=== PATIENT | female | born 1990 | race Caucasian/White ===

== ENCOUNTER 2020-03-14 04:39 | Inpatient (IN) | payer BC ==
[2020-03-14] MEDS ORDERED: Sodium Chloride 0.9% 10 ML SDV IV PRN (05:28)
[2020-03-14] MEDS ORDERED: Sodium Chloride 0.9% 10 ML Syringe FLUSH PRN (05:28)
[2020-03-14] MEDS ORDERED: Sodium Chloride 0.9% 2.5 ML Syringe FLUSH PRN (05:28)
[2020-03-14] MEDS ORDERED: Lactated Ringers 1,000 ML IV SCH ×2 (05:30→09:45)
[2020-03-14] MEDS ORDERED: Oxytocin/0.9 % Sodium Chloride 30 UNIT/500 ML BAG IV SCH (05:30)
[2020-03-14] MEDS ORDERED: Morphine PF 10 MG/10 ML SDV ONE (06:58)
[2020-03-14] MEDS ORDERED: Oxytocin 10 Units/1 ML SDV ONE (07:02)
[2020-03-14] MEDS ORDERED: Sodium Chloride 0.9% 20 ML ONE (07:02)
[2020-03-14] MEDS ORDERED: Ondansetron 4 MG/2 ML SDV ONE (07:02)
[2020-03-14] MEDS ORDERED: Phenylephrine 1% 10 MG/ML SDV ONE (07:02)
[2020-03-14] MEDS ORDERED: ceFAZolin 1 GM Vial ONE (07:02)
[2020-03-14] MEDS ORDERED: Ketorolac 30 MG/ML SDV ONE (07:02)
[2020-03-14] MEDS ORDERED: Octyl 2-Cyanoacrylate 1 Tube ONE (07:28)
--- NOTE | 2020-03-14 07:37 | PCM.PREANE ---
Preanesthetic Assessment - Anesthesia/Transfusion/Family Hx Anesthesia History: Prior Anesthesia Without Reaction Family History of Anesthesia Reaction: No Transfusion History: No Prior Transfusion(s) - Review of Systems General: No Symptoms Pulmonary: No Symptoms Cardiovascular: No Symptoms Gastrointestinal: No Symptoms Neurological: No Symptoms Other: Reports: None - Physical Assessment NPO Status Date: 03/13/20 Height: 5 ft 7 in Weight: 68.946 kg ASA Class: 2 Mental Status: Alert & Oriented x3 Airway Class: Mallampati = 2 Dentition: Reports: Normal Dentition ROM/Head Extension: Full Lungs: Clear to Auscultation, Normal Respiratory Effort Cardiovascular: Regular Rate, Regular Rhythm - Lab Values: Laboratory Last Values WBC 7.94 K/uL (4.0-11.0) 03/14/20 05:36 RBC 4.56 M/uL (4.30-5.90) 03/14/20 05:36 Hgb 13.6 g/dL (12.0-16.0) 03/14/20 05:36 Hct 40.0 % (36.0-46.0) 03/14/20 05:36 MCV 87.7 fL (80.0-98.0) 03/14/20 05:36 MCH 29.8 pg (27.0-32.0) 03/14/20 05:36 MCHC 34.0 g/dL (31.0-37.0) 03/14/20 05:36 RDW Std Deviation 43.7 fl (28.0-62.0) 03/14/20 05:36 RDW Coeff of Jimy 14 % (11.0-15.0) 03/14/20 05:36 Plt Count 168 K/uL (150-400) 03/14/20 05:36 MPV 11.40 fL (7.40-12.00) 03/14/20 05:36 Nucleated RBC % 0.0 /100WBC 03/14/20 05:36 Nucleated RBCs # 0 K/uL 03/14/20 05:36 Blood Type O POSITIVE 03/14/20 05:36 Antibody Screen NEGATIVE 03/14/20 05:36 - Allergies Allergies/Adverse Reactions: Allergies Allergy/AdvReac Type Severity Reaction Status Date / Time amoxicillin Allergy Rash Verified 03/14/20 05:28 - Blood Blood Available: Yes - Anesthesia Plan Pre-Op Medication Ordered: Antacids - Acknowledgements Anesthesia Type Planned: Spinal Pt an Appropriate Candidate for the Planned Anesthesia: Yes Alternatives and Risks of Anesthesia Discussed w Pt/Guardian: Yes Pt/Guardian Understands and Agrees with Anesthesia Plan: Yes Additional Comments: PMH: elective c section for LGA and hx of 3rd degree tear during of first child, Gest DM diet controlled PLAN: spinal; with duramorpg PreAnesthesia Questionnaire HEENT History: Reports: Impaired Vision Other HEENT History: wears contact lens\glasses Cardiovascular History: Reports: None Respiratory History: Reports: None Gastrointestinal History: Reports: Other (See Below) Other Gastrointestinal History: occasional heartburn with Genitourinary History: Reports: None 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: Musculoskeletal History: Reports: Fracture Other Musculoskeletal History: states fractured tailbone when in highschool Neurological History: Reports: None Psychiatric History: Reports: Anxiety Endocrine/Metabolic History: Reports: Diabetes, Gestational Other Endocrine/Metabolic History: states controlled by exercise and diet Hematologic History: Reports: None Immunologic History: Reports: None Oncologic (Cancer) History: Reports: None Dermatologic History: Reports: None - Infectious Disease History Infectious Disease History: Reports: Chicken Pox Other Infectious Disease History: when a child - Past Surgical History Head Surgeries/Procedures: Reports: None HEENT Surgical History: Reports: Oral Surgery Other HEENT Surgeries/Procedures: states had wisdom teeth extracted 2009 Cardiovascular Surgical History: Reports: None Respiratory Surgical History: Reports: None GI Surgical History: Reports: None Female Surgical History: Reports: None Endocrine Surgical History: Reports: None Neurological Surgical History: Reports: None Musculoskeletal Surgical History: Reports: None Oncologic Surgical History: Reports: None - SUBSTANCE USE Tobacco Use Status *Q: Never Tobacco User Second Hand Smoke Exposure: No - HOME MEDS Home Medications: Home Meds Fish Oil/Bartelso-3 Fatty Acids [Fish Oil 1,000 MG] 1 tab PO DAILY 03/08/20 [History] Magnesium 1 tab PO DAILY 03/08/20 [History] Vit No.129/Iron/FA [ One Daily Tablet] 1 tab PO DAILY 03/08/20 [History] - CURRENT (IN HOUSE) MEDS Current Meds: Current Medications Citric Acid/Sodium Citrate (Bicitra Solution) 30 ml PO ONETIME ONE Stop: 03/14/20 08:01 Oxytocin/Sodium Chloride (Oxytocin 30 Unit/500 Ml-Ns) 30 unit in 500 mls @ 250 mls/hr IV TITRATE [facility] Lactated Ringer's (Ringers, Lactated) 1,000 mls @ 500 mls/hr IV BOLUS [facility] Last Admin: 03/14/20 05:40 Dose: 500 mls/hr Documented by: Sodium Chloride (Saline Flush) 10 ml FLUSH ASDIRECTED PRN PRN Reason: Keep Vein Open Sodium Chloride (Saline Flush) 2.5 ml FLUSH ASDIRECTED PRN PRN Reason: Keep Vein Open Sodium Chloride (Normal Saline) 10 ml IV ASDIRECTED PRN PRN Reason: IV Use Discontinued Medications Cefazolin Sodium (Ancef) Confirm Administered Dose 2 gm .ROUTE .STK-MED ONE Stop: 03/14/20 07:03 Sodium Chloride (Normal Saline) Confirm Administered Dose 20 mls @ as directed .ROUTE .STK-MED ONE Stop: 03/14/20 07:03 Ketorolac Tromethamine (Toradol) Confirm Administered Dose 30 mg .ROUTE .STK-MED ONE Stop: 03/14/20 07:03 Morphine Sulfate (Duramorph Pf) Confirm Administered Dose 10 mg .ROUTE .STK-MED ONE Stop: 03/14/20 06:59 Octyl Cyanoacrylate (Dermabond Advance) Confirm Administered Dose 1 applic .ROUTE .STK-MED ONE Stop: 03/14/20 07:29 Ondansetron HCl (Zofran) Confirm Administered Dose 4 mg .ROUTE .STK-MED ONE Stop: 03/14/20 07:03 Oxytocin (Pitocin) Confirm Administered Dose 20 unit .ROUTE .STK-MED ONE Stop: 03/14/20 07:03 Phenylephrine HCl (Lex-Synephrine) Confirm Administered Dose 10 mg .ROUTE .STK- MED ONE Stop: 03/14/20 07:03
[2020-03-14] MEDS ORDERED: Acetaminophen/oxyCODONE 325-5 MG Tab PO PRN (07:38)
[2020-03-14] MEDS ORDERED: fentaNYL 100 MCG/2 ML SDV IVPUSH PRN (07:38)
[2020-03-14] MEDS ORDERED: Citric Acid/Sodium Citrate Solution 30 ML Cup PO ONE (08:00)
[2020-03-14] MEDS ORDERED: Tranexamic Acid 1,000 MG in Sodium Chloride 0.9% 100 ML IV PRN (09:34)
[2020-03-14] MEDS ORDERED: Methylergonovine 0.2 MG/1 ML Amp IM PRN (09:34)
[2020-03-14] MEDS ORDERED: Bisacodyl 10 MG Supp RECTAL PRN (09:34)
[2020-03-14] MEDS ORDERED: Ondansetron 4 MG/2 ML SDV IVPUSH PRN (09:34)
[2020-03-14] MEDS ORDERED: Lanolin 100% Cream 7 GM Tube TOP PRN (09:34)
[2020-03-14] MEDS ORDERED: Oxytocin 10 Units/1 ML SDV IM PRN (09:34)
[2020-03-14] MEDS ORDERED: Misoprostol 200 MCG Tab RECTAL PRN (09:34)
[2020-03-14] MEDS ORDERED: Oxytocin/Lactated Ringers 30 UNIT/500 ML BAG IV SCH (09:45)
--- NOTE | 2020-03-14 09:48 | PCM.OPNOTE ---
- General Post-Op/Procedure Note Date of Surgery/Procedure: 03/14/20 Operative Procedure(s): Primary lower segment cesearean section Findings: Live male delivered at 829am , 8/9 weight 4010g , Normal tubes and ovaries, Uterus with small subserosal fibroid Pre Op Diagnosis: 30yo @ 39w0d. GDMA1, Suspected Macrosomia. Hx of 4th degree laceration , Hx of VAVD Post-Op Diagnosis: same Anesthesia Technique: Spinal Primary Surgeon: Davon Winn Anesthesia Provider: [place] Pathology: Placenta Fluid Replacement, Intraop: 900 Output, Urine Amount: 50 EBL in mLs: 800 Complications: None Condition: Good Free Text/Narrative:: Intake & Output 03/13/20 03/14/20 03/14/20 22:59 06:59 14:59 Output Total 50 Balance -50
--- NOTE | 2020-03-14 09:49 | PCM.POSTAN ---
POST ANESTHESIA ASSESSMENT - MENTAL STATUS Mental Status: Alert, Oriented - VITAL SIGNS Vital Signs: Last Vital Signs Temp 97.2 F 03/14/20 09:15 Pulse 66 03/14/20 09:45 Resp 13 03/14/20 09:45 BP 93/54 L 03/14/20 09:45 Pulse Ox 98 03/14/20 09:45 - RESPIRATORY Respiratory Status: Respiratory Rate WNL, Airway Patent, O2 Saturation Stable - CARDIOVASCULAR CV Status: Pulse Rate WNL, Blood Pressure Stable - GASTROINTESTINAL GI Status: No Symptoms - POST OP HYDRATION Hydration Status: Adequate & Stable
[2020-03-14] MEDS: Nalbuphine 10 MG/1 ML Vial IVPUSH PRN ×2 (10:52→15:08)
[2020-03-14] MEDS: Ketorolac 30 MG/ML SDV IVPUSH SCH ×3 (10:52→21:10)
--- NOTE | 2020-03-14 14:58 | OR ---
SURGEON: VINH ROSE DATE OF PROCEDURE: 03/14/2020 PREOPERATIVE DIAGNOSES: 1. A 30-year-old G2, P1-0-0-1 at 39 weeks 0 days for primary section. 2. Gestational diabetes mellitus A1. 3. Suspected macrosomia. 4. History of fourth-degree laceration. 5. History of vacuum-assisted vaginal delivery. POSTOPERATIVE DIAGNOSES: 1. A 30-year-old G2, P1-0-0-1 at 39 weeks 0 days for primary section. 2. Gestational diabetes mellitus A1. 3. Suspected macrosomia. 4. History of fourth-degree laceration. 5. History of vacuum-assisted vaginal delivery. PROCEDURE: Primary lower segment section. ESTIMATED BLOOD LOSS: 800. INTRAVENOUS FLUID: 900. URINE OUTPUT: 50. ANESTHESIA: Spinal. COMPLICATIONS: None. NOTES AND FINDINGS: Live male delivered at 8:29am scores of 8 and 9. Weight is 4010 g. Normal tubes and ovaries. Small subserosal fibroid noted in uterus. BRIEF HISTORY ABOUT THE PATIENT: She is 30-year-old G2, P1-0-0-1 who had care complicated with a GDMA1 . She also had polyhydramnios, last XOCHILT reduced at 24. She had also suspected macrosomia with Predicted EFW to be greater than 4500. As a result, she was counseled for a primary section for suspected macrosomia versus induction of labor. The patient was explained the risks, benefits, and alternatives, and she decided to proceed with . DESCRIPTION OF PROCEDURE: The patient was taken to the operating room where spinal anesthesia was performed without difficulty. She was prepared and draped in the dorsal supine position with a leftward tilt. A Pfannenstiel skin incision was made with a scalpel and carried down to the fascia with a Bovie. The fascia was incised and extended upwards and laterally. The fascia was seperated from the rectus muscle n the midline down to the level of the pubic symphysis. Then, the peritoneum was then opened up bluntly, and Juan Alberto retractor was placed. A bladder flap was created. A lower uterine incision was made. The fetus was in cephalic position, was brought to the level of the incision. Then, the was delivered without difficulty. Delayed cord clamping was observed. The cord was clamped and cut. The was handed over to the awaiting nursery nurse. The placenta was delivered by manual massage of the uterine fundus. The inside of uterus was cleaned with laparotomy sponges. The uterus was closed in 2 layers, first layer with 0 Vicryl, second layer with 0 Monocryl. The gutters were cleaned with moist laparotomy sponges. Incision was inspected, noted to be hemostatic. The Juan Alberto retractor was removed. Then, the bladder blade was placed. Incision was inspected and noted to be hemostatic. Then, peritoneum was closed with 3-0 Vicryl. The raphe of the rectus muscle in the midline was also approximated. The fascia was closed with 0 Vicryl. The skin was closed with 3-0 Monocryl on a Sharad needle. All instrument and pad counts were correct x2. ENRIQUE / MARTINEZ /[id number] MTDD
[2020-03-14] MEDS: Docusate Sodium 100 MG Cap PO SCH (21:11)
[2020-03-14] MEDS: diphenhydrAMINE 50 MG/ML SDV IVPUSH PRN (21:17)
[2020-03-15] MEDS: diphenhydrAMINE 50 MG/ML SDV IVPUSH PRN (03:30)
[2020-03-15] MEDS: Ketorolac 30 MG/ML SDV IVPUSH SCH ×2 (03:30→09:25)
[2020-03-15] MEDS: Acetaminophen/oxyCODONE 325-5 MG Tab PO PRN ×2 (09:31→18:03)
[2020-03-15] MEDS: Docusate Sodium 100 MG Cap PO SCH ×2 (09:32→20:43)
--- NOTE | 2020-03-15 10:17 | PCM.PNPP ---
- General Info Date of Service: 03/15/20 Subjective Update: 30yo P2 s/p for suspected macrosomia , GDMA 1 well controlled . Pumping and bottle feeding Normal lochia , H/H stable this am, Ambulating , regular diet , Good mood , voiding Functional Status: Reports: Pain Controlled, Tolerating Diet, Ambulating, Urinating - Review of Systems General: Reports: No Symptoms HEENT: Reports: No Symptoms Pulmonary: Reports: No Symptoms Cardiovascular: Reports: No Symptoms Gastrointestinal: Reports: No Symptoms Genitourinary: Reports: No Symptoms Musculoskeletal: Reports: No Symptoms Skin: Reports: No Symptoms Neurological: Reports: No Symptoms Psychiatric: Reports: No Symptoms - General Info Date of Service: 03/15/20 - Patient Data Vital Signs - Most Recent: Last Vital Signs Temp 36.8 C 03/15/20 08:12 Pulse 83 03/15/20 08:12 Resp 16 03/15/20 08:12 BP 106/64 03/15/20 08:12 Pulse Ox 100 03/15/20 08:12 Weight - Most Recent: 68.946 kg I&O - Last 24 Hours: Intake & Output 03/14/20 03/15/20 03/15/20 22:59 06:59 14:59 Intake Total 699 Output Total 800 5700 Balance -101 -5700 Lab Results - Last 24 Hours: Laboratory Results - last 24 hr 03/15/20 Range/Units 06:23 Hgb 11.8 L (12.0-16.0) g/dL Hct 34.9 L (36.0-46.0) % Med Orders - Current: Current Medications Bisacodyl (Dulcolax) 10 mg RECTAL ONETIME PRN PRN Reason: Constipation Diphenhydramine HCl (Benadryl) 25 mg IVPUSH Q6H PRN PRN Reason: Itching or Nausea Last Admin: 03/15/20 03:30 Dose: 25 mg Documented by: Docusate Sodium (Colace) 100 mg PO BID [facility] Last Admin: 03/15/20 09:32 Dose: 100 mg Documented by: Emollient Ointment (Lansinoh Hpa) 0 gm TOP ASDIRECTED PRN PRN Reason: Sore Nipples Oxytocin/Sodium Chloride (Oxytocin 30 Unit/500 Ml-Ns) 30 unit in 500 mls @ 250 mls/hr IV TITRATE [facility] Lactated Ringer's (Ringers, Lactated) 1,000 mls @ 125 mls/hr IV ASDIRECTED [facility] Last Admin: 03/14/20 10:29 Dose: 125 mls/hr Documented by: Oxytocin/Lactated Ringer's (Pitocin In Lr 30 Units/500 Ml) 30 unit in 500 mls @ 2 mls/hr IV TITRATE [facility]; Protocol Tranexamic Acid 1,000 mg/ (Sodium Chloride) 110 mls @ 660 mls/hr IV ONETIME PRN PRN Reason: Bleeding Ibuprofen (Motrin) 800 mg PO Q8H PRN PRN Reason: mild pain or fever Methylergonovine Maleate (Methergine) 0.2 mg IM ONETIME PRN PRN Reason: Excessive Vaginal Bleeding Misoprostol (Cytotec) 1,000 mcg RECTAL ONETIME PRN PRN Reason: excessive bleeding Ondansetron HCl (Zofran) 4 mg IVPUSH Q4H PRN PRN Reason: Nausea/Vomiting Oxycodone/Acetaminophen (Percocet 325-5 Mg) 1 tab PO Q4H PRN PRN Reason: Pain (moderate 4-6) Last Admin: 03/15/20 09:31 Dose: 1 tab Documented by: Oxycodone/Acetaminophen (Percocet 325-5 Mg) 2 tab PO Q4H PRN PRN Reason: Pain (moderate 4-6) Oxytocin (Pitocin) 10 unit IM ASDIRECTED PRN PRN Reason: Excessive Vaginal Bleeding Sodium Chloride (Saline Flush) 10 ml FLUSH ASDIRECTED PRN PRN Reason: Keep Vein Open Sodium Chloride (Saline Flush) 2.5 ml FLUSH ASDIRECTED PRN PRN Reason: Keep Vein Open Sodium Chloride (Normal Saline) 10 ml IV ASDIRECTED PRN PRN Reason: IV Use Discontinued Medications Cefazolin Sodium (Ancef) Confirm Administered Dose 2 gm .ROUTE .STK-MED ONE Stop: 03/14/20 07:03 Citric Acid/Sodium Citrate (Bicitra Solution) 30 ml PO ONETIME ONE Stop: 03/14/20 08:01 Fentanyl (Sublimaze) 50 mcg IVPUSH Q5M PRN PRN Reason: Pain (severe 7-10) Stop: 03/15/20 07:38 Lactated Ringer's (Ringers, Lactated) 1,000 mls @ 500 mls/hr IV BOLUS [facility] Last Admin: 03/14/20 05:40 Dose: 500 mls/hr Documented by: Sodium Chloride (Normal Saline) Confirm Administered Dose 20 mls @ as directed .ROUTE .STK-MED ONE Stop: 03/14/20 07:03 Ketorolac Tromethamine (Toradol) Confirm Administered Dose 30 mg .ROUTE .STK-MED ONE Stop: 03/14/20 07:03 Ketorolac Tromethamine (Toradol) 30 mg IVPUSH Q6H [facility] Stop: 03/15/20 09:46 Last Admin: 03/15/20 09:25 Dose: 30 mg Documented by: Morphine Sulfate (Duramorph Pf) Confirm Administered Dose 10 mg .ROUTE .STK-MED ONE Stop: 03/14/20 06:59 Nalbuphine HCl (Nubain) 2.5 mg IVPUSH Q3H PRN PRN Reason: Pruritis Stop: 03/15/20 07:38 Last Admin: 03/14/20 15:08 Dose: 2.5 mg Documented by: Octyl Cyanoacrylate (Dermabond Advance) Confirm Administered Dose 1 applic .ROUTE .STK-MED ONE Stop: 03/14/20 07:29 Last Admin: 03/14/20 10:52 Dose: Not Given Documented by: Ondansetron HCl (Zofran) Confirm Administered Dose 4 mg .ROUTE .STK-MED ONE Stop: 03/14/20 07:03 Oxycodone/Acetaminophen (Percocet 325-5 Mg) 1 tab PO ONETIME PRN PRN Reason: Pain (moderate 4-6) Oxytocin (Pitocin) Confirm Administered Dose 20 unit .ROUTE .STK-MED ONE Stop: 03/14/20 07:03 Phenylephrine HCl (Lex-Synephrine) Confirm Administered Dose 10 mg .ROUTE .STK- MED ONE Stop: 03/14/20 07:03 - Interaction Support Person: - Recovery Exam Fundal Tone: Firm Fundal Level: 1 Fingerbreadths Below Umbilicus Fundal Placement: Midline Lochia Amount: Scant Lochia Color: Rubra/Red Perineum Description: Intact, Minimal Bruising/Swelling Episiotomy/Laceration: None Bladder Status: Indwelling Catheter in Place Urinary Elimination: Indwelling Catheter - Exam General: Alert HEENT: Pupils Equal Neck: Supple Lungs: Clear to Auscultation Cardiovascular: Regular Rate, Regular Rhythm GI/Abdominal Exam: Normal Bowel Sounds Extremities: Normal Inspection Wound/Incisions: Dressing Dry and Intact Neurological: No New Focal Deficit Psy/Mental Status: Alert, Normal Affect, Normal Mood - Problem List & Annotations (1) delivery delivered SNOMED Code(s): 078483253 Code(s): O82 - ENCOUNTER FOR DELIVERY WITHOUT INDICATION Status: Acute Current Visit: Yes (2) Gestational diabetes mellitus (GDM) SNOMED Code(s): 59485905 Code(s): O24.419 - GESTATIONAL DIABETES MELLITUS IN , UNSP CONTROL Status: Acute Current Visit: Yes Qualifiers: Gestational diabetes mellitus control: diet-controlled - Problem List Review Problem List Initiated/Reviewed/Updated: Yes - My Orders Last 24 Hours: My Active Orders 03/14/20 09:34 Patient Status [ADT] Routine Ambulate [RC] PER UNIT ROUTINE Communication Order [RC] PER UNIT ROUTINE Communication Order [RC] PER UNIT ROUTINE Communication Order [RC] Per Unit Routine May Shower [RC] ASDIRECTED Notify Provider Intake and Out [RC] ASDIRECTED Notify Provider Vital Signs [RC] ASDIRECTED RT Incentive Spirometry [RC] Q2HWA Acetaminophen/oxyCODONE [Percocet 325-5 MG] 1 tab PO Q4H PRN Acetaminophen/oxyCODONE [Percocet 325-5 MG] 2 tab PO Q4H PRN Ibuprofen [Motrin] 800 mg PO Q8H PRN Lanolin [Lansinoh HPA] See Dose Instructions TOP ASDIRECTED PRN Methylergonovine [Methergine] 0.2 mg IM ONETIME PRN Ondansetron [Zofran] 4 mg IVPUSH Q4H PRN Oxytocin [Pitocin] 10 unit IM ASDIRECTED PRN Tranexamic Acid [Cyklokapron] 1,000 mg Sodium Chloride 0.9% [Normal Saline] 100 ml IV ONETIME bisacodyL [Dulcolax] 10 mg RECTAL ONETIME PRN diphenhydrAMINE [Benadryl] 25 mg IVPUSH Q6H PRN miSOPROStoL [Cytotec] 1,000 mcg RECTAL ONETIME PRN Assess Lochia [WOMSER] Per Unit Routine Assess Uterine Involution [WOMSER] Per Unit Routine Breast Pump [WOMSER] Per Unit Routine Peripheral IV Discontinue [OM.PC] Routine Sequential Compression Device [OM.PC] Per Unit Routine Resuscitation Status Routine 03/14/20 09:35 Antiembolic Devices [RC] PER UNIT ROUTINE 03/14/20 09:45 Lactated Ringers [Ringers, Lactated] 1,000 ml IV ASDIRECTED Oxytocin/Lactated Ringers [Pitocin in LR 30 Units/500 ML] 30 unit in 500 ml IV TITRATE 03/14/20 Dinner Regular Diet [DIET] 03/14/20 21:00 Docusate Sodium [Colace] 100 mg PO BID - Assessment Assessment:: 30yo P2 s/p for suspected macrosomia POD 1 , met all post op goals ambulating , voiding and tolerating regular diet Normal lochia - Plan Plan:: Regular diet Pain control as needed Venodynes Incentive spirometry VSS per protocol Possible discharge tomorrow
--- NOTE | 2020-03-15 11:54 | PCM48HPAN ---
Post Anesthesia Note - EVALUATION WITHIN 48HRS OF ANESTHETIC Vital Signs in Normal Range: Yes Patient Participated in Evaluation: Yes Respiratory Function Stable: Yes Airway Patent: Yes Cardiovascular Function Stable: Yes Hydration Status Stable: Yes Pain Control Satisfactory: Yes Nausea and Vomiting Control Satisfactory: Yes Mental Status Recovered: Yes Vital Signs: Last Vital Signs Temp 36.8 C 03/15/20 08:12 Pulse 83 03/15/20 08:12 Resp 16 03/15/20 08:12 BP 106/64 03/15/20 08:12 Pulse Ox 100 03/15/20 08:12
[2020-03-15] MEDS: Ibuprofen 800 MG Tab PO PRN ×2 (14:54→22:51)
[2020-03-16] MEDS: Acetaminophen/oxyCODONE 325-5 MG Tab PO PRN ×2 (01:05→07:49)
[2020-03-16] MEDS: Docusate Sodium 100 MG Cap PO SCH ×2 (07:49→12:27)
[2020-03-16] MEDS: Ibuprofen 800 MG Tab PO PRN (07:50)
--- NOTE | 2020-03-16 13:36 | PCM.PNPP ---
- General Info Date of Service: 03/16/20 Subjective Update: 30yo P2 s/p for suspected macrosomia , GDMA 1 well controlled , POD 2 . Functional Status: Reports: Pain Controlled, Tolerating Diet, Ambulating, Urinating - Review of Systems General: Reports: No Symptoms HEENT: Reports: No Symptoms Pulmonary: Reports: No Symptoms Cardiovascular: Reports: No Symptoms Gastrointestinal: Reports: No Symptoms Genitourinary: Reports: No Symptoms Musculoskeletal: Reports: No Symptoms Skin: Reports: No Symptoms Neurological: Reports: No Symptoms Psychiatric: Reports: No Symptoms - General Info Date of Service: 03/16/20 - Patient Data Vital Signs - Most Recent: Last Vital Signs Temp 36.9 C 03/16/20 12:57 Pulse 83 03/16/20 12:57 Resp 18 03/16/20 12:57 BP 128/76 03/16/20 12:57 Pulse Ox 95 03/16/20 12:57 Weight - Most Recent: 68.946 kg Med Orders - Current: Current Medications Bisacodyl (Dulcolax) 10 mg RECTAL ONETIME PRN PRN Reason: Constipation Diphenhydramine HCl (Benadryl) 25 mg IVPUSH Q6H PRN PRN Reason: Itching or Nausea Last Admin: 03/15/20 03:30 Dose: 25 mg Documented by: Docusate Sodium (Colace) 100 mg PO BID [facility] Last Admin: 03/16/20 12:27 Dose: Not Given Documented by: Emollient Ointment (Lansinoh Hpa) 0 gm TOP ASDIRECTED PRN PRN Reason: Sore Nipples Oxytocin/Sodium Chloride (Oxytocin 30 Unit/500 Ml-Ns) 30 unit in 500 mls @ 250 mls/hr IV TITRATE [facility] Lactated Ringer's (Ringers, Lactated) 1,000 mls @ 125 mls/hr IV ASDIRECTED [facility] Last Admin: 03/14/20 10:29 Dose: 125 mls/hr Documented by: Oxytocin/Lactated Ringer's (Pitocin In Lr 30 Units/500 Ml) 30 unit in 500 mls @ 2 mls/hr IV TITRATE [facility]; Protocol Tranexamic Acid 1,000 mg/ (Sodium Chloride) 110 mls @ 660 mls/hr IV ONETIME PRN PRN Reason: Bleeding Ibuprofen (Motrin) 800 mg PO Q8H PRN PRN Reason: mild pain or fever Last Admin: 03/16/20 07:50 Dose: 800 mg Documented by: Methylergonovine Maleate (Methergine) 0.2 mg IM ONETIME PRN PRN Reason: Excessive Vaginal Bleeding Misoprostol (Cytotec) 1,000 mcg RECTAL ONETIME PRN PRN Reason: excessive bleeding Ondansetron HCl (Zofran) 4 mg IVPUSH Q4H PRN PRN Reason: Nausea/Vomiting Oxycodone/Acetaminophen (Percocet 325-5 Mg) 1 tab PO Q4H PRN PRN Reason: Pain (moderate 4-6) Last Admin: 03/16/20 07:49 Dose: 1 tab Documented by: Oxycodone/Acetaminophen (Percocet 325-5 Mg) 2 tab PO Q4H PRN PRN Reason: Pain (moderate 4-6) Last Admin: 03/16/20 01:05 Dose: 2 tab Documented by: Oxytocin (Pitocin) 10 unit IM ASDIRECTED PRN PRN Reason: Excessive Vaginal Bleeding Sodium Chloride (Saline Flush) 10 ml FLUSH ASDIRECTED PRN PRN Reason: Keep Vein Open Sodium Chloride (Saline Flush) 2.5 ml FLUSH ASDIRECTED PRN PRN Reason: Keep Vein Open Sodium Chloride (Normal Saline) 10 ml IV ASDIRECTED PRN PRN Reason: IV Use Discontinued Medications Cefazolin Sodium (Ancef) Confirm Administered Dose 2 gm .ROUTE .STK-MED ONE Stop: 03/14/20 07:03 Citric Acid/Sodium Citrate (Bicitra Solution) 30 ml PO ONETIME ONE Stop: 03/14/20 08:01 Fentanyl (Sublimaze) 50 mcg IVPUSH Q5M PRN PRN Reason: Pain (severe 7-10) Stop: 03/15/20 07:38 Lactated Ringer's (Ringers, Lactated) 1,000 mls @ 500 mls/hr IV BOLUS [facility] Last Admin: 03/14/20 05:40 Dose: 500 mls/hr Documented by: Sodium Chloride (Normal Saline) Confirm Administered Dose 20 mls @ as directed .ROUTE .STK-MED ONE Stop: 03/14/20 07:03 Ketorolac Tromethamine (Toradol) Confirm Administered Dose 30 mg .ROUTE .STK-MED ONE Stop: 03/14/20 07:03 Ketorolac Tromethamine (Toradol) 30 mg IVPUSH Q6H [facility] Stop: 03/15/20 09:46 Last Admin: 03/15/20 09:25 Dose: 30 mg Documented by: Morphine Sulfate (Duramorph Pf) Confirm Administered Dose 10 mg .ROUTE .STK-MED ONE Stop: 03/14/20 06:59 Nalbuphine HCl (Nubain) 2.5 mg IVPUSH Q3H PRN PRN Reason: Pruritis Stop: 03/15/20 07:38 Last Admin: 03/14/20 15:08 Dose: 2.5 mg Documented by: Octyl Cyanoacrylate (Dermabond Advance) Confirm Administered Dose 1 applic .ROUTE .STK-MED ONE Stop: 03/14/20 07:29 Last Admin: 03/14/20 10:52 Dose: Not Given Documented by: Ondansetron HCl (Zofran) Confirm Administered Dose 4 mg .ROUTE .STK-MED ONE Stop: 03/14/20 07:03 Oxycodone/Acetaminophen (Percocet 325-5 Mg) 1 tab PO ONETIME PRN PRN Reason: Pain (moderate 4-6) Oxytocin (Pitocin) Confirm Administered Dose 20 unit .ROUTE .STK-MED ONE Stop: 03/14/20 07:03 Phenylephrine HCl (Lex-Synephrine) Confirm Administered Dose 10 mg .ROUTE .STK- MED ONE Stop: 03/14/20 07:03 - Infant Interaction Support Person: - Recovery Exam Fundal Tone: Firm Fundal Level: 1 Fingerbreadths Below Umbilicus Fundal Placement: Midline Lochia Amount: Scant Lochia Color: Rubra/Red Perineum Description: Intact, Minimal Bruising/Swelling Episiotomy/Laceration: None Bladder Status: Voiding Urinary Elimination: Voided - Exam General: Alert HEENT: Pupils Equal Neck: Supple Lungs: Clear to Auscultation Cardiovascular: Regular Rate, Regular Rhythm GI/Abdominal Exam: Normal Bowel Sounds Wound/Incisions: Dressing Dry and Intact Neurological: No New Focal Deficit Psy/Mental Status: Alert - Problem List & Annotations (1) delivery delivered SNOMED Code(s): 741420978 Code(s): O82 - ENCOUNTER FOR DELIVERY WITHOUT INDICATION Status: Acute Current Visit: Yes (2) Gestational diabetes mellitus (GDM) SNOMED Code(s): 46194220 Code(s): O24.419 - GESTATIONAL DIABETES MELLITUS IN , UNSP CONTROL Status: Acute Current Visit: Yes Qualifiers: Gestational diabetes mellitus control: diet-controlled - Problem List Review Problem List Initiated/Reviewed/Updated: Yes - My Orders Last 24 Hours: My Active Orders 03/16/20 09:51 Ready for Discharge [RC] PER UNIT ROUTINE - Assessment Assessment:: 30yo P2 s/p for suspected macrosomia POD 2 , met all post op goals ambulating , voiding and tolerating regular diet Normal lochia - Plan Plan:: Regular diet Pain control as needed Venodynes Incentive spirometry VSS per protocol discharge today
== END 2020-03-16 13:45 | disposition home or self-care (01) | DRG 540 ==
LOC: MW.OB 04:39
PROVIDERS: ADMIT Obstetrics & Gynecology; ATTEND Obstetrics & Gynecology
PROC: 10D00Z1 Extraction of Products of Conception, Low, Open Approach (ICD-10-PCS; principal; 2020-03-14)
DX: O36.63X0 Maternal care for excessive fetal growth, third trimester, not applicable or unspecified (principal); Z37.0 Single live birth; O24.420 Gestational diabetes mellitus in childbirth, diet controlled; O34.13 Maternal care for benign tumor of corpus uteri, third trimester; D25.2 Subserosal leiomyoma of uterus; Z3A.39 39 weeks gestation of pregnancy
CPT/HCPCS: 36415; 59025; 85014; 85018; 85027; 86592; 86850; 86900; 86901; A9270-GY; J0690; J1200; J1885; J2270; J2300; J2370; J2405; J2590; J7120